=== PATIENT | male | born 1955 | race Caucasian/White ===

== ENCOUNTER 2023-01-28 08:57 | Outpatient (CLI) | payer MEDICARE, SELFPAY ==
--- NOTE | ~2023-01-28 | CT_ITS ---
EXAMINATION: CT abdomen pelvis w con DATE: 01/28/2023 10:05 INDICATION: Malignant neoplasm with hormone sensitive status TECHNIQUE: Computed tomography (CT) of the abdomen and pelvis was performed with 100 mL Omnipaque-350 intravenous contrast. Automated exposure control and iterative reconstruction technique were employe d. The dose-length product was 1338.30 mGy-cm. COMPARISON: 11/03/2014 FINDINGS: Dependent atelectasis in the bilateral lower lobes. Heart size is normal. Atherosclerotic coronary ar tyler calcification. No pericardial or pleural effusion. Diffuse hepatic steatosis with focal sparing along the gallbladder fossa. Gallbladder, spleen, pancreas, bilateral adrenal glands are normal. A fe w small bilateral renal cysts the largest on the left measuring 1.3 cm. Bowels including the appendix are normal. Mild trabeculation and a few small diverticula along the bladder wall likely related to chronic outlet obstruction from the enlarged prostate which measures 4.9 x 4.1 cm. No free intraperit leroy gas or fluid. No pathologically enlarged abdominal or pelvic lymphadenopathy. Severe spondylosi s at the lumbosacral junction with mild spondylosis in the more cephalad lumbar and lower thoracic sp ine. A few small sclerotic bone islands at the bilateral proximal femurs. No other suspicious lytic o r blastic bone lesions. IMPRESSION: 1. No evident metastatic disease. 2. Mild bladder wall trabeculation a couple small bladder diverticula likely sequela of chronic outle t obstruction from the enlarged prostate. Reviewed, dictated and finalized at location A. IMPRESSION: 1. No evident metastatic disease. 2. Mild bladder wall trabeculation a couple small bladder diverticula likely se quela of chronic outlet obstruction from the enlarged prostate.
--- NOTE | ~2023-01-28 | NM_ITS ---
EXAMINATION: NM bone scan whole body DATE: 01/28/2023 13:23 INDICATION: Malignant neoplasm with hormone sensitive status. TECHNIQUE: 27.2 mCi Tc-99m HDP was administered intravenously. Delayed whole-body scintigrams were o btained. COMPARISON: CT abdomen and pelvis 01/28/2023 FINDINGS: There is increased activity in right knee and left foot without radiographic comparison, li parag osteoarthritis. There is increased activity at some of the facet joints in the spine, likely ost eoarthritis. IMPRESSION: 1. No evidence of metastatic disease. Reviewed, dictated and finalized at location A.
[2023-01-28 09:53] LABS: Estimated Glomerular Filt Rate > 60
== END 2023-01-28 08:58 | disposition home or self-care (01) ==
PROVIDERS: PCP Internal Medicine; Visit Provider Urology
DX: N32.89 Other specified disorders of bladder (principal); Z19.1 Hormone sensitive malignancy status
CPT/HCPCS: 74177; 78306; A9503; Q9967